=== PATIENT | female | born 1965 | race Two or more races ===

== ENCOUNTER 2018-08-28 01:38 | Emergency (ER) | payer BC ==
[~2018-08-28] VITALS: Ht 149.9 cm; Wt 64.0 kg
[2018-08-28] MEDS ORDERED: ACETAMINOPHEN 325MG TABLET PO ONE (02:30)
[2018-08-28 03:15] LABS: CLARITY URINE CLEAR (CLEAR); COLOR URINE DARK YELLOW (YELLOW); KETONES URINE NEGATIVE (NEGATIVE); LEUKOCYTE ESTERASE URINE TRACE (NEGATIVE); NITRITE URINE POSITIVE (NEGATIVE); OCCULT BLOOD URINE NEGATIVE (NEGATIVE); PROTEIN URINE NEGATIVE (NEGATIVE); SPECIFIC GRAVITY URINE 1.004 (1.005-1.030)
[2018-08-28 03:30] VITALS: BP 137/67
== END 2018-08-28 06:28 | disposition home or self-care (01) ==
LOC: ER 01:38
DX: N39.0 Urinary tract infection, site not specified (principal)
CPT/HCPCS: 99283